=== PATIENT | female | born 1985 | race Caucasian/White ===

== ENCOUNTER 2018-04-29 11:55 | Emergency (ER) | payer OTHER ==
[~2018-04-29] VITALS: Ht 165.1 cm; Wt 115.9 kg
[2018-04-29 12:03] VITALS: TEMP 98.1
[2018-04-29] MEDS ORDERED: SYNTHROID0.075 MG/T PO (12:33)
[2018-04-29] MEDS ORDERED: COZAAR 25MG25 MG/TAB PO (12:34)
[2018-04-29] MEDS ORDERED: ACIPHEX20 MG PO (12:34)
[2018-04-29] MEDS ORDERED: LATUDA20 MG PO (12:34)
[2018-04-29] MEDS ORDERED: ALDACTONE50 MG PO (12:34)
[2018-04-29 13:15] LABS: BASO # 0.1 (0.0-0.2); BASO % 0.6 % (0.0-2.0); EOS % 0.3 % (0-4.0); GRAN # 7.3 (1.4-6.5); GRAN % 69.4 % (42.2-75.2); HEMOGLOBIN 12.4 g/dl (12.5-16.0); LYMPH # 2.4 (1.2-3.4); LYMPH % 22.9 % (20.0-51.0); MEAN CELL VOLUME 82 fl (80.0-100.0); MEAN CORPUSCULAR HEMOGLOBIN 27 pg (27.0-31.0); MEAN CORPUSCULAR HGB CONC 34 g/dl (33.0-37.0); MEAN PLATELET VOLUME 10.4 fl (7.4-10.4); MONO # 0.7 (0.1-0.6); MONO % 6.4 % (1.7-9.3); PLATELET COUNT 301 K/mm3 (130-400); RED BLOOD COUNT 4.53 M/mm3 (4.10-5.30); REDCELL DISTRIBUTION WIDTH-CV 13.9 % (11.5-14.5)
[2018-04-29 13:27] LABS: CALCIUM 9.2 mg/dL (8.4-10.2); CREATININE, serum 0.83 mg/dL (0.52-1.25); POTASSIUM 3.9 mmol/L (3.4-5.0)
[2018-04-29 13:55] LABS: TSH w REFLEX 1.77 uIU/mL (0.465-4.680)
[2018-04-29 14:32] VITALS: BP 123/72; PULSE 78
== END 2018-04-29 14:33 | disposition home or self-care (01) ==
LOC: COL.ER 11:55
PROVIDERS: Physician Assistant
DX: G43.109 Migraine with aura, not intractable, without status migrainosus (principal); I10 Essential (primary) hypertension; E03.9 Hypothyroidism, unspecified; F32.9 Major depressive disorder, single episode, unspecified